=== PATIENT | male | born 1955 | race Caucasian/White ===

== ENCOUNTER 2019-08-29 09:04 | Inpatient (IN) | payer BC ==
[2019-08-29] VITALS (12 sets, daily range): BP systolic 82–157; BP diastolic 40–87
[~2019-08-29] VITALS: Ht 177.8 cm; Wt 73.9 kg
[2019-08-29 10:50] LABS: BASOPHIL % 0.1 % (0-2); PLATELET COUNT 200 x10^3mcL (130-400)
[2019-08-29 10:55] LABS: RED CELL DISTRIBUTION WIDTH 18.6 % (11.5-14.5)
[2019-08-29 11:05] LABS: ALKALINE PHOSPHATASE 272 U/L (46-116); ALT/SGPT 22 U/L (16-63); AST/SGOT 33 U/L (15-37); BILIRUBIN TOTAL 0.52 mg/dL (0.20-1.00); C REACTIVE PROTEIN 1.8 mg/dL (<=0.9); CALCIUM 7.9 mg/dL (8.5-10.1); CHLORIDE SERUM 110 mmol/L (98-107); GLUCOSE SERUM 213 mg/dL (74-106); LACTIC DEHYDROGENASE (LDH) 231 U/L (100-190); SODIUM SERUM 142 mmol/L (136-145)
[2019-08-29 11:09] LABS: ALBUMIN 2.3 g/dL (3.4-5.0); CREATININE SERUM 4.3 mg/dL (0.7-1.3); GFR1 15 mL/min; POTASSIUM SERUM 7.3 mmol/L (3.5-5.1); TOTAL PROTEIN, SERUM 5.5 g/dL (6.4-8.2)
[2019-08-29 11:13] LABS: microscopic required? YES; urine erythrocyte TRACE (NEGATIVE)
[2019-08-29] MEDS ORDERED: FLONASE ALLERG9.9 ML NS (13:46)
[2019-08-29] MEDS ORDERED: AZOR 10-20 MG1 EACH PO (13:47)
[2019-08-29] MEDS ORDERED: ASPIRIN FOR CHI81 M1 PO (13:47)
[2019-08-29] MEDS ORDERED: FEOSOL65 M1 PO (13:48)
[2019-08-29] MEDS ORDERED: ATORVASTATIN CA20 M1 PO (13:48)
[2019-08-29] MEDS ORDERED: HYDRALAZINE HCL25 MG PO (13:48)
[2019-08-29] MEDS ORDERED: CARVEDILOL ER40 MG PO (13:48)
[2019-08-29] MEDS ORDERED: PANTOPRAZOLE SO40 M1 PO (13:49)
[2019-08-29] MEDS ORDERED: ISOSORBIDE MON120 MG PO (13:49)
[2019-08-29] MEDS ORDERED: HYDROCODONE BITA PO (13:50)
[2019-08-29] MEDS ORDERED: SODIUM BICARBO325 MG PO (13:50)
[2019-08-29] MEDS ORDERED: WOMEN'S LAXATIVE5 MG PO (13:51)
[2019-08-29] MEDS ORDERED: GOOD NEIGH1200 MG/15 PO (13:51)
[2019-08-29 13:57] LABS: CHOLESTEROL/HDL RATIO 5.5
[2019-08-29 14:03] LABS: FREE T4 1.08 ng/dL (0.76-1.46); FREE THYROXINE INDEX 2.1 ug/dL (1.4-4.5); T4(THYROXINE) 6.3 ug/dL (4.7-13.3)
[2019-08-29 14:52] LABS: T3 TOTAL 0.88 ng/mL
[2019-08-29 15:42] LABS: CREATININE SERUM 4.2 mg/dL (0.7-1.3)
[2019-08-30] VITALS (17 sets, daily range): BP systolic 97–169; BP diastolic 58–97
[2019-08-30 05:50] LABS: C REACTIVE PROTEIN 4.7 mg/dL (<=0.9); CALCIUM 8.1 mg/dL (8.5-10.1); CARBON DIOXIDE 25.9 mmol/L (21-32); CREATININE SERUM 3.6 mg/dL (0.7-1.3); MAGNESIUM 1.9 mg/dL (1.8-2.4); PHOSPHOROUS 4.1 mg/dL (2.5-4.9); POTASSIUM SERUM 5.3 mmol/L (3.5-5.1)
[2019-08-30 06:11] LABS: BASOPHIL % 0.2 % (0-2)
[2019-08-30 06:13] LABS: PLATELET COUNT 69 x10^3mcL (130-400); RED CELL DISTRIBUTION WIDTH 17.9 % (11.5-14.5)
[2019-08-30 06:14] LABS: rbc morphology (normal/abnorm) ABNORMAL (NORMAL)
[2019-08-30 09:17] LABS: BASOPHIL % 0.3 % (0-2)
[2019-08-30 09:54] LABS: PLATELET COUNT 76 x10^3mcL (130-400); RED CELL DISTRIBUTION WIDTH 18.1 % (11.5-14.5)
[2019-08-30 12:21] LABS: IRON 64 ug/dL (65-170)
[2019-08-30 12:28] LABS: TOTAL IRON BINDING CAPACITY 199 ug/dL (250-450)
[2019-08-31] VITALS (18 sets, daily range): BP systolic 140–158; BP diastolic 60–86
[2019-08-31 05:12] LABS: BASOPHIL % 0.3 % (0-2)
[2019-08-31 05:16] LABS: PLATELET COUNT 105 x10^3mcL (130-400); RED CELL DISTRIBUTION WIDTH 17.5 % (11.5-14.5)
[2019-08-31 05:20] LABS: CALCIUM 8.4 mg/dL (8.5-10.1); CARBON DIOXIDE 26.6 mmol/L (21-32); CREATININE SERUM 2.8 mg/dL (0.7-1.3); MAGNESIUM 1.7 mg/dL (1.8-2.4); PHOSPHOROUS 3.7 mg/dL (2.5-4.9); POTASSIUM SERUM 4.4 mmol/L (3.5-5.1)
[2019-09-01] VITALS (16 sets, daily range): BP systolic 108–162; BP diastolic 61–73
[2019-09-01 05:43] LABS: BASOPHIL % 0.5 % (0-2)
[2019-09-01 05:51] LABS: CARBON DIOXIDE 27.2 mmol/L (21-32); CREATININE SERUM 3.3 mg/dL (0.7-1.3); MAGNESIUM 1.6 mg/dL (1.8-2.4); PHOSPHOROUS 3.7 mg/dL (2.5-4.9); POTASSIUM SERUM 3.8 mmol/L (3.5-5.1)
[2019-09-01 05:52] LABS: PLATELET COUNT 72 x10^3mcL (130-400); RED CELL DISTRIBUTION WIDTH 17.6 % (11.5-14.5)
[2019-09-02] VITALS (15 sets, daily range): BP systolic 133–165; BP diastolic 64–78
[2019-09-02 05:55] LABS: PLATELET COUNT 76 x10^3mcL (130-400); RED CELL DISTRIBUTION WIDTH 16.9 % (11.5-14.5)
[2019-09-02 05:57] LABS: C REACTIVE PROTEIN 4.9 mg/dL (<=0.9); CALCIUM 8.3 mg/dL (8.5-10.1); CARBON DIOXIDE 29.3 mmol/L (21-32); CREATININE SERUM 3.4 mg/dL (0.7-1.3); MAGNESIUM 1.7 mg/dL (1.8-2.4); PHOSPHOROUS 3.7 mg/dL (2.5-4.9)
[2019-09-02 10:05] LABS: MONOCYTE 10 % (0-7); SEGMENTED NEUTROPHILS 72 % (37-75)
[2019-09-02 10:07] LABS: rbc morphology (normal/abnorm) NORMAL (NORMAL)
[2019-09-03] VITALS (19 sets, daily range): BP systolic 128–179; BP diastolic 61–84
[2019-09-03 05:10] LABS: CALCIUM 8.2 mg/dL (8.5-10.1); CARBON DIOXIDE 29.2 mmol/L (21-32); MAGNESIUM 1.7 mg/dL (1.8-2.4); PHOSPHOROUS 3.8 mg/dL (2.5-4.9)
[2019-09-03 06:03] LABS: PLATELET COUNT 79 x10^3mcL (130-400)
[2019-09-03 13:26] LABS: BAND NEUTROPHIL 2 % (0-10); BASOPHIL 0 % (0-2); MONOCYTE 10 % (0-7); SEGMENTED NEUTROPHILS 24 % (37-75)
[2019-09-03 13:28] LABS: rbc morphology (normal/abnorm) ABNORMAL (NORMAL)
[2019-09-04] VITALS (19 sets, daily range): BP systolic 103–155; BP diastolic 52–72
[2019-09-04 05:02] LABS: CALCIUM 7.7 mg/dL (8.5-10.1); MAGNESIUM 1.8 mg/dL (1.8-2.4); PHOSPHOROUS 3.2 mg/dL (2.5-4.9); POTASSIUM SERUM 3.8 mmol/L (3.5-5.1)
[2019-09-04 05:30] LABS: PLATELET COUNT 99 x10^3mcL (130-400); RED CELL DISTRIBUTION WIDTH 16.4 % (11.5-14.5)
[2019-09-04 06:32] LABS: BAND NEUTROPHIL 0 % (0-10); SEGMENTED NEUTROPHILS 44 % (37-75)
[2019-09-04 06:33] LABS: MONOCYTE 12 % (0-7)
[2019-09-04 06:34] LABS: rbc morphology (normal/abnorm) ABNORMAL (NORMAL)
[2019-09-05] VITALS (18 sets, daily range): BP systolic 127–155; BP diastolic 56–73
[2019-09-05 05:00] LABS: CARBON DIOXIDE 27.1 mmol/L (21-32); CREATININE SERUM 3.7 mg/dL (0.7-1.3); MAGNESIUM 1.9 mg/dL (1.8-2.4); PHOSPHOROUS 4.5 mg/dL (2.5-4.9)
[2019-09-05 05:05] LABS: PLATELET COUNT 73 x10^3mcL (130-400); RED CELL DISTRIBUTION WIDTH 16.8 % (11.5-14.5)
[2019-09-05 05:55] LABS: BAND NEUTROPHIL 8 % (0-10); BASOPHIL 0 % (0-2); MONOCYTE 6 % (0-7); SEGMENTED NEUTROPHILS 70 % (37-75)
[2019-09-05 05:56] LABS: rbc morphology (normal/abnorm) ABNORMAL (NORMAL); tear drop cell (dacryocyte) 1+
[2019-09-05 05:57] LABS: PLATELET MORPHOLOGY LARGE PLATELET SEEN
[2019-09-06] VITALS (18 sets, daily range): BP systolic 144–159; BP diastolic 63–71
[2019-09-06 05:37] LABS: BASOPHIL % 0.3 % (0-2)
[2019-09-06 05:41] LABS: PLATELET COUNT 76 x10^3mcL (130-400); RED CELL DISTRIBUTION WIDTH 15.5 % (11.5-14.5)
[2019-09-06 05:46] LABS: CARBON DIOXIDE 26.9 mmol/L (21-32); CREATININE SERUM 3.9 mg/dL (0.7-1.3); MAGNESIUM 2.1 mg/dL (1.8-2.4); PHOSPHOROUS 4.5 mg/dL (2.5-4.9); POTASSIUM SERUM 4.1 mmol/L (3.5-5.1)
[2019-09-07] VITALS (17 sets, daily range): BP systolic 124–161; BP diastolic 56–79
[2019-09-07 05:07] LABS: BASOPHIL % 0.4 % (0-2); PLATELET COUNT 85 x10^3mcL (130-400); RED CELL DISTRIBUTION WIDTH 15.7 % (11.5-14.5)
[2019-09-07 05:09] LABS: CALCIUM 8.3 mg/dL (8.5-10.1); CARBON DIOXIDE 29.5 mmol/L (21-32); CREATININE SERUM 3.1 mg/dL (0.7-1.3); MAGNESIUM 1.9 mg/dL (1.8-2.4); POTASSIUM SERUM 3.7 mmol/L (3.5-5.1)
[2019-09-08] VITALS (18 sets, daily range): BP systolic 128–156; BP diastolic 57–93
[2019-09-08 04:55] LABS: BASOPHIL % 0.4 % (0-2)
[2019-09-08 05:00] LABS: PLATELET COUNT 107 x10^3mcL (130-400); RED CELL DISTRIBUTION WIDTH 15.2 % (11.5-14.5)
[2019-09-08 05:13] LABS: CARBON DIOXIDE 26.4 mmol/L (21-32); CREATININE SERUM 3.7 mg/dL (0.7-1.3); PHOSPHOROUS 5.1 mg/dL (2.5-4.9); POTASSIUM SERUM 4.1 mmol/L (3.5-5.1)
[2019-09-09] VITALS (19 sets, daily range): BP systolic 111–149; BP diastolic 55–70
[2019-09-09 05:57] LABS: BASOPHIL % 0.4 % (0-2)
[2019-09-09 06:16] LABS: CREATININE SERUM 3.4 mg/dL (0.7-1.3); PHOSPHOROUS 4.5 mg/dL (2.5-4.9); POTASSIUM SERUM 3.5 mmol/L (3.5-5.1)
[2019-09-09 06:42] LABS: PLATELET COUNT 105 x10^3mcL (130-400); RED CELL DISTRIBUTION WIDTH 15.3 % (11.5-14.5)
[2019-09-10] VITALS (10 sets, daily range): BP systolic 97–174; BP diastolic 45–76
[2019-09-10 06:00] LABS: CALCIUM 8.6 mg/dL (8.5-10.1); CARBON DIOXIDE 27.5 mmol/L (21-32); MAGNESIUM 2.3 mg/dL (1.8-2.4); PHOSPHOROUS 5.3 mg/dL (2.5-4.9); POTASSIUM SERUM 3.9 mmol/L (3.5-5.1)
[2019-09-10 07:53] LABS: BASOPHIL % 0.3 % (0-2)
[2019-09-10 07:56] LABS: PLATELET COUNT 115 x10^3mcL (130-400); RED CELL DISTRIBUTION WIDTH 15.2 % (11.5-14.5)
[2019-09-11 03:09] VITALS: BP 96/44
[2019-09-11 08:22] VITALS: BP 104/48
[2019-09-11 09:13] VITALS: BP 104/48
[2019-09-11 11:47] VITALS: BP 111/46
[2019-09-11 15:20] VITALS: Ht 177.8 cm; Wt 73.9 kg
[2019-09-11 16:01] VITALS: BP 91/45
== END 2019-09-11 23:55 | disposition expired | DRG 870 ==
LOC: ED 09:04 → DU 13:11 → IC 13:11
PROVIDERS: Emergency Medicine; Internal Medicine; ADMIT Family Medicine
PROC: 5A1955Z Respiratory Ventilation, Greater than 96 Consecutive Hours (ICD-10-PCS; 2019-08-29)
PROC: 0BH17EZ Insertion of Endotracheal Airway into Trachea, Via Natural or Artificial Opening (ICD-10-PCS; 2019-08-29)
PROC: 02HV33Z Insertion of Infusion Device into Superior Vena Cava, Percutaneous Approach (ICD-10-PCS; 2019-08-29)
PROC: B548ZZA Ultrasonography of Superior Vena Cava, Guidance (ICD-10-PCS; 2019-08-29)
PROC: 05H533Z Insertion of Infusion Device into Right Subclavian Vein, Percutaneous Approach (ICD-10-PCS; 2019-08-29)
PROC: 5A1D70Z Performance of Urinary Filtration, Intermittent, Less than 6 Hours Per Day (ICD-10-PCS; 2019-08-29)
PROC: 5A1D70Z Performance of Urinary Filtration, Intermittent, Less than 6 Hours Per Day (ICD-10-PCS; 2019-08-30)
PROC: 5A1D70Z Performance of Urinary Filtration, Intermittent, Less than 6 Hours Per Day (ICD-10-PCS; 2019-09-02)
PROC: 30233N1 Transfusion of Nonautologous Red Blood Cells into Peripheral Vein, Percutaneous Approach (ICD-10-PCS; principal; 2019-09-05)
PROC: 5A1D70Z Performance of Urinary Filtration, Intermittent, Less than 6 Hours Per Day (ICD-10-PCS; 2019-09-06)
PROC: 5A1D70Z Performance of Urinary Filtration, Intermittent, Less than 6 Hours Per Day (ICD-10-PCS; 2019-09-08)
DX: A41.9 Sepsis, unspecified organism (principal); J96.01 Acute respiratory failure with hypoxia; N17.0 Acute kidney failure with tubular necrosis; E43 Unspecified severe protein-calorie malnutrition; I50.23 Acute on chronic systolic (congestive) heart failure; J18.9 Pneumonia, unspecified organism; I13.0 Hypertensive heart and chronic kidney disease with heart failure and stage 1 through stage 4 chronic kidney disease, or unspecified chronic kidney disease; N18.4 Chronic kidney disease, stage 4 (severe); A04.72 Enterocolitis due to Clostridium difficile, not specified as recurrent; G93.1 Anoxic brain damage, not elsewhere classified; Z88.3 Allergy status to other anti-infective agents; Z20.828 Contact with and (suspected) exposure to other viral communicable diseases; E87.5 Hyperkalemia; I25.5 Ischemic cardiomyopathy; D63.1 Anemia in chronic kidney disease; E11.22 Type 2 diabetes mellitus with diabetic chronic kidney disease; R56.9 Unspecified convulsions; R65.20 Severe sepsis without septic shock; I46.9 Cardiac arrest, cause unspecified; E11.21 Type 2 diabetes mellitus with diabetic nephropathy; Z68.25 Body mass index [BMI] 25.0-25.9, adult
CPT/HCPCS: 36600; 82962; 83880; 84439; 85378; 87046; 87046-59; 87804; A4628; A4719; C9113; G0378; J0360; J0456; J0610; J0696; J1642; J1644; J1815; J1940; J1953; J1956; J2060; J2185; J2250; J2270; J2543; J2704; J2997; J3370; J3475; J3490; J7030; J7050; J7060; P9016; Q0092; Q0163; Q9967; U0003-CS